=== PATIENT | male | born 1950 | race Caucasian/White ===

== ENCOUNTER 2017-01-22 10:48 | Emergency (ER) | payer MEDICAID, MEDICARE ==
[~2017-01-22 10:48] MED LIST: IBUP800T23 PO; PRIL20CA PO; ROBA750T3 PO
[2017-01-22 10:49] VITALS: BP 146/72; PULSE 83; RESP 12; TEMP 98.6; O2SAT 99
[2017-01-22] MEDS ORDERED: BACT800T5 PO ×2 (11:22→11:49)
[2017-01-22] MEDS ORDERED: LIDOCAINE HCL 1% 50 ML VIAL INFIL ONE (11:30)
--- NOTE | 2017-01-22 12:01 | PD ---
HPI Chief Complaint: Skin Problem Time Seen by Provider: 11:22 Travel History International Travel<30 days: No Contact w/Intl Traveler<30days: No Traveled to known affect area: No History of Present Illness HPI 67-year-old male presents to emergency department with a lesion on his upper back for 3 days. Pain is described as moderate, especially with palpation. He has been unable to sleep on his back because of the pain. Denies fluid expression of fluid States that he has had multiple of these and usually require incision and drainage. Patient denies fever, chills, chest pain. Patient denies any other complaints at this time. [facility] Social History Alcohol Use: No Tobacco Use: No Allergies-Medications (Allergen,Severity, Reaction): Coded Allergies: No Known Allergies (Unverified , 03/31/14) Reported Meds & Prescriptions Reported Meds & Active Scripts Active Bactrim DS (Sulfamethoxazole-Trimethoprim) 800-160 Mg Tab 1 Tab PO BID Review of Systems Except as stated in HPI: all other systems reviewed are Neg Physical Exam Narrative GENERAL: WD WN in NAD SKIN: Warm and dry. mid thoracic region, 2cm round, fluctuant cyst with erythema overlying, no lymphangiopathic spread. HEAD: Normocephalic. EYES: No scleral icterus. No injection or drainage. NECK: Supple, trachea midline. No JVD or lymphadenopathy. CARDIOVASCULAR: Regular rate and rhythm without murmurs, gallops, or rubs. RESPIRATORY: Breath sounds equal bilaterally. No accessory muscle use. MUSCULOSKELETAL: No cyanosis, or edema. BACK: Nontender without obvious deformity. No CVA tenderness. Data Data Last Documented VS Vital Signs Date Time Temp Pulse Resp B/P (MAP) Pulse Ox O2 Delivery O2 Flow Rate FiO2 01/22/17 12:19 01/22/17 10:49 98.6 83 12 99 Orders Orders Lidocaine 1% Inj (50 Ml) (Xylocaine 1% I (01/22/17 11:30) Wound Care (01/22/17 12:02) Ed Discharge Order (01/22/17 12:05) MDM Medical Decision Making Medical Screen Exam Complete: Yes Emergency Medical Condition: Yes Differential Diagnosis Abscess versus cellulitis versus impetigo Narrative Course 67-year-old male presents to emergency department with a lesion on his upper back for 3 days. Pain is described as moderate, especially with palpation over the cyst. He has been unable to sleep on his back because of the pain. Denies fluid expression of fluid. States that he has had multiple of these and usually require incision and drainage. Patient denies fever, chills, chest pain. Patient denies any other complaints at this time. Vital signs stable. PE consistent with abscess. I&D performed. I discussed the possible reasons why he has had multiple abscesses to include hygiene and pore size. I recommended he follow up with is PCP for further discussion and monitoring of this issue. Advised on wound care. Advised to follow up with PCP within 2-3 for wound check. Advised pt to return for worsening or persistent symptoms. Procedures Procedure Narrative Discussed the risks vs benefits of the procedure and pt wanted to proceed. Using clean technique, site prepped with iodine. Local anesthesia completed using 1% lidocaine without epinephrine by injecting superficially into the fluctuant portion of lesion. Using a #11 scalpel, made a 5 mm incision into the abscess. Exudate expressed with light pressure. Abscess irrigated and loculations broken down. Site was iodoform packed, dressed with clean gauze. Pt tolerated well. Diagnosis Primary Impression: Abscess Referrals: Primary Care Physician Additional Instructions: Change dressings in 24 hours. Avoid getting the dressings wet for 24 hours. Change dressing daily. Avoid tubs for submersion for at least 3 days. You may use a warm compress for the area after 3 days. Take all medication as prescribed. Follow up with your PCP within 2-3 days. Return to the ED for worsening or persistent symptoms. Scripts Sulfamethoxazole-Trimethoprim (Bactrim DS) 800-160 Mg Tab 1 TAB PO BID for Infection, #14 TAB 0 Refills Prov: Kanika Baltazar 01/22/17 Disposition: 01 DISCHARGE HOME Condition: Stable Kanika Baltazar Jan 22, 2017 12:01
== END 2017-01-22 12:30 | disposition home or self-care (01) ==
LOC: NEPK 10:48
DX: L02.212 Cutaneous abscess of back [any part, except buttock and flank] (principal)
CPT/HCPCS: 10061